=== PATIENT | female | born 1955 | race American Indian/Alaskan Native ===

== ENCOUNTER 2022-02-11 19:55 | Inpatient (IN) | payer MEDICARE ==
--- NOTE | 2022-02-11 20:34 | Cat Scan Report ---
CT HEAD WITHOUT CONTRAST INDICATION / CLINICAL INFORMATION: stroke. TECHNIQUE: All CT scans at this location are performed using CT dose reduction for ALARA by means of automated e xposure control. COMPARISON: None available. FINDINGS: HEMORRHAGE: No evidence of intracranial hemorrhage or extra-axial fluid collection. EXTRA-AXIAL SPACES: Cortical sulci, sylvian fissures and basilar cisterns have an unremarkable appear ance. VENTRICULAR SYSTEM: The third and lateral ventricles are of normal size and configuration. CEREBRAL PARENCHYMA: Subtle periventricular white matter lucencies noted compatible with early microv ascular ischemic change. No additional areas of abnormal brain parenchymal attenuation are identified . There is no indication of recent infarction. MIDLINE SHIFT OR HERNIATION: There is no mass effect. CEREBELLUM / BRAINSTEM: Brainstem and cerebellum have an unremarkable appearance. MIDLINE STRUCTURES:No abnormalities of the pituitary gland or pineal region are identified. INTRACRANIAL VESSELS:Calcified atherosclerotic plaque is observed along the course the cavernous segm ents of both internal carotid arteries. ORBITS: visualized portions of the orbits have an unremarkable appearance. SOFT TISSUES of HEAD: No significant abnormality. CALVARIUM: Evaluation of bone windows reveals no abnormalities. PARANASAL SINUSES / MASTOID AIR CELLS: Visualized portions of the paranasal sinuses are free from inf lammatory mucosal disease. Mastoid air cells are normally pneumatized. ADDITIONAL FINDINGS: Ossification of the falx is observed in the anterior interhemispheric fissure. IMPRESSION: 1. No acute intracranial abnormality. 2. Mild microvascular ischemic change. Signer Name: Arnoldo Beck MD Signed: 02/11/2022 8:29 PM Workstation Name: [id number]
--- NOTE | 2022-02-11 20:42 | Emergency Department Report ---
ED Neuro Deficit HPI - General Stated Complaint: NEURO Time Seen by Provider: 02/11/22 20:00 Source: patient, family, RN/MD, RN notes reviewed, old records reviewed Mode of arrival: Stretcher Limitations: No Limitations - History of Present Illness Initial Comments: 66-year-old obese female with history of hypertension brought in by EMS from [facility] for evaluation of stroke. Patient and her daughter provide HPI. Patient's daughter states that at 5:00 she received a call from her father stating that the patient was cooking food and felt dizzy, and fell, s triking the back of her head against the ground. She did not blackout or lose consciousness. The patient was to follow-up with [place] via the [facility] but she telephoned her daughter to take her to [place]. 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 She states that they got to [place] at approximately 6 PM and by the time they arrived, the patient was noted to have weakness in her left arm and left leg and to have slurred speech and complained that she needed help with a wheelchair. Patient denies any prior history of strokes. She complains of a posterior headache, slurred speech, and weakness in her left arm and left leg. Patient please states "my left leg feels numb and I cannot really move it." Pain currently 6 out of 10 - Related Data Allergies/Adverse Reactions: Allergies Allergy/AdvReac Type Severity Reaction Status Date / Time No Known Allergies Allergy Unverified 02/11/22 19:58 ED Review of Systems ROS: Stated complaint: NEURO Other details as noted in HPI Comment: All other systems reviewed and negative Constitutional: no symptoms reported Eyes: as per HPI ENT: as per HPI Respiratory: no symptoms reported Cardiovascular: denies: chest pain, palpitations, dyspnea on exertion, orthopnea, edema, syncope, paroxysmal nocturnal dyspnea Musculoskeletal: denies: back pain, joint swelling, arthralgia, myalgia Neurological: headache, weakness, numbness, paresthesias, abnormal gait. denies: confusion, vertigo, other Psychiatric: denies: as per HPI, anxiety, depression, auditory hallucinations, v isual hallucinations, homicidal thoughts, suicidal thoughts Hematological/Lymphatic: denies: easy bleeding, easy bruising, swollen glands ED Past Medical Hx - Past Medical History Previous Medical History?: Yes Hx Hypertension: Yes - Family History Family history: no significant - Social History Smoking Status: Never Smoker Substance Use Type: None ED Neuro Physical Exam - General Limitations: No Limitations General appearance: alert Suspected Stroke: Yes - Head Head exam: Present: atraumatic, normocephalic, normal inspection - Eye Eye exam: Present: normal appearance, PERRL, EOMI Pupils: Present: normal accommodation - ENT ENT exam: Present: normal exam, mucous membranes moist - Neck Neck exam: Present: normal inspection, meningismus, full ROM. Absent: lymphadenopathy, thyromegaly, other - Respiratory Respiratory exam: Present: normal lung sounds bilaterally. Absent: respiratory distress, wheezes, rales, rhonchi, stridor, chest wall tenderness, accessory muscle use, decreased breath sounds, prolonged expiratory - Cardiovascular Cardiovascular Exam: Present: regular rate, normal rhythm, normal heart sounds. Absent: bradycardia, tachycardia, irregular rhythm, systolic murmur, diastolic murmur, rubs, gallop, clicks, JVD, S3, S4 - GI/Abdominal GI/Abdominal exam: Present: soft, normal bowel sounds. Absent: distended, tenderness, guarding, rebound, rigid, hyperactive bowel sounds, hypoactive bowel sounds, organomegaly, mass, bruit, pulsatile mass, hernia - Extremities Exam Extremities exam: Present: normal inspection, full ROM, normal capillary refill. Absent: tenderness, pedal edema, joint swelling, calf tenderness - Back Exam Back exam: Present: normal inspection, full ROM. Absent: tenderness, CVA tenderness (R), CVA tenderness (L), muscle spasm, paraspinal tenderness, vertebral tenderness - Neurological Exam Neurological exam: Present: alert, oriented X3, other (dsyarthria) - NIHSS Assessment Interval: Baseline 1a. Level of Consciousness: alert/keenly responsive 1b. LOC Questions: answers both correctly 1c. LOC Commands: performs tasks correctly 2. Best Gaze: normal 3. Visual: no visual loss 4. Facial Palsy: partial paralysis 5b. Motor Arm Right: no drift 5a. Motor Arm Left: some gravity effort 6a. Motor Leg Left: no gravity effort 6b. Motor Leg Right: no drift 7. Limb Ataxia: present 1 limb 8. Sensory: mild/moderate sensory loss 9. Best Language: no aphasia 10. Dysarthria: mild/moderate dysarthria 11. Extinction/Inattention: no abnormality Total Score: 10 Stroke Severity: Moderate Stroke - Psychiatric Psychiatric exam: Present: normal affect - Skin Skin exam: Present: warm, intact, normal color ED Course Vital Signs 02/11/22 21:15 Blood Pressure 181/71 - Reevaluation(s) Reevaluation #1: 08:48pm: Call received from stroke neurologist, Dr. Roque. Per her verbal report patient is a tPA candidate. However patient is undecided and she is advising that I speak to the patient and her daughter again and to administer tPA if they are in agreement, given that the patient is within the window to be given tPA but that this must be given emergently given of the window for close and approximate 10 minutes. 8:50 PM: Call terminated with stroke neurologist. I emergently went to the patient's room and had an extensive conversation with her and her daughter. 8:54 PM. Patient verbalizes agreement to receive tPA. 02/11/22 21:04: [facility] telephoned to ascertain whether or not the patient would require transfer per [facility] policy.. I was transferred to the hub specialist Dr. Marrero. Case was reviewed with her. She states that pt's rec eiving TPA are not candidates for transfer. She advises that the patient be kept here at [facility] for admission and further management. 02/11/22 21:14 Reevaluation #2: 02/11/22 22:00 Patient is reassessed. She is noted to be having 4 out of 5 motor strength in her left lower extremity and 4 out of 5 motor strength left upper extremity, left-sided facial droop has improved significantly. Patient has mild dysarthria and reports overall improvement in her symptoms. We will continue to monitor. - Lab Data Result diagrams: 02/11/22 21:21 02/11/22 21:21 Lab Results 02/11/22 02/11/22 Range/Units 21:21 21:21 WBC 5.3 (4.5-11.0) K/mm3 RBC 4.08 (3.65-5.03) M/mm3 Hgb 11.8 (10.1-14.3) gm/dl Hct 35.4 (30.3-42.9) % MCV 87 (79-97) fl MCH 29 (28-32) pg MCHC 33 (30-34) % RDW 13.2 (13.2-15.2) % Plt Count 166 (140-440) K/mm3 Lymph % (Auto) 18.2 (13.4-35.0) % [place] % (Auto) 5.7 (0.0-7.3) % Eos % (Auto) 1.3 (0.0-4.3) % Baso % (Auto) 0.6 (0.0-1.8) % Lymph # (Auto) 1.0 L (1.2-5.4) K/mm3 [place] # (Auto) 0.3 (0.0-0.8) K/mm3 Eos # (Auto) 0.1 (0.0-0.4) K/mm3 Baso # (Auto) 0.0 (0.0-0.1) K/mm3 Seg Neutrophils % 74.2 H (40.0-70.0) % Seg Neutrophils # 3.9 (1.8-7.7) K/mm3 Sodium 142 (137-145) mmol/L Potassium 4.0 (3.6-5.0) mmol/L Chloride 106.4 (98-107) mmol/L Carbon Dioxide 24 (22-30) mmol/L Anion Gap 16 mmol/L BUN 8 (7-17) mg/dL Creatinine 0.8 (0.6-1.2) mg/dL Estimated GFR > 60 ml/min BUN/Creatinine Ratio 10 % Glucose 109 H (65-100) mg/dL Calcium 8.7 (8.4-10.2) mg/dL Total Bilirubin 0.40 (0.1-1.2) mg/dL AST 17 (5-40) units/L ALT 12 (7-56) units/L Alkaline Phosphatase 90 (35-129) units/L Troponin T < 0.010 (0.00-0.029) ng/mL Total Protein 7.0 (6.3-8.2) g/dL Albumin 3.8 L (3.9-5) g/dL Albumin/Globulin Ratio 1.2 % - EKG Data -: EKG Interpreted by [place] EKG shows normal: sinus rhythm Rate: normal When compared to previous EKG there are: no significant change - Radiology Data Radiology results: report reviewed - Medical Decision Making 66-year-old obese female with hypertension, brought in for acute stroke symptoms with slurred speech, left facial droop, left upper and left lower extremity weakness. Vitals stable. Diagnostic imaging and labs reviewed. Stroke n eurologist evaluated the patient. Per her recommendation patient is within window to receive tPA. tPA administered and the patient demonstrated significant improvement and near resolution of her neurological deficits. Patient has been accepted for admission to the medical intensive care unit by Dr. Jones, admitting hospitalist. - Thrombolytic Inclusion/Exclusion Thrombolytic Inclusion Criteria: Ischemic Stroke Onset< 3h, NIH Stroke Scale Deficit, Negative CT Scan for ICH, Age 18 or Older, Glucose of 50-400mg/dl Critical Care Time: Yes Critical care time in (mins) excluding proc time.: 30 Critical care attestation.: If time is entered above; I have spent that time in minutes in the direct care of this critically ill patient, excluding procedure time. ED Disposition Clinical Impression: Stroke, Dysarthria Disposition: ADMITTED INPATIENT Is pt being admited?: Yes Does the pt Need Aspirin: No Condition: Stable
[2022-02-11] MEDS ORDERED: ALTEPLASE 100 MG INJ KIT IV ONE ×2 (20:53)
[2022-02-11] MEDS ORDERED: SODIUM CHLORIDE 0.9% 50 ML IVPB IV ONE (20:53)
--- NOTE | 2022-02-11 20:54 | Emergency Department Report ---
Blank Doc - Documentation Documentation: [facility] Consult Note # Demographics Consult Type: Acute Stroke Level 1 (0-4.5 hrs) Patient Location: Emergency Room First Name: Fidelina Last Name: Reji Date of : 1955 Age: 66 Gender: Female Facility: [facility] Time of Initial Page ( Time): 02/11/2022, 19:58 Time of Return Call ( Time): 02/11/2022, 20:07 # HPI History: 66 year old female who states she was having vertigo. She suddenly fell on her back. She state she also had numbness on left arm and leg. Last Known Normal: 2 hours # Scores Level of Consciousness 1a: [0] = Alert; keenly responsive LOC Questions 1b: [0] = Answers both questions correctly LOC Commands 1c: [0] = Performs both tasks correctly Best Gaze 2: [0] = Normal Visual 3: [0] = No visual loss Facial Palsy 4: [1] = Minor paralysis Motor Arm Left 5a: [1] = Drift Motor Arm Right 5b: [0] = No drift Motor Leg Left 6a: [2] = Some effort against gravity Motor Leg Right 6b: [0] = No drift Limb Ataxia 7: [0] = Absent Sensory 8: [1] = [id number] sensory loss Best Language 9: [0] = No aphasia Dysarthria 10: [1] = [id number] dysarthria Extinction and Inattention 11: [0] = No abnormality NIHSS Total: 6 # PMH-FH-SH Past Medical History: hyperlipidemia hypertension Social History: non-smoker non-drinker no drugs lives with spouse # Data Head CT: no bleed per radiologist read # Assessment Impression: Stroke: Tpa discussed with patient and she most likely would like to consent but wants to discuss with family. DR. Hodges to obtain final consent before moving forward with administration. # Plan Thrombolytic/Intervention: IV thrombolytic and possible IA candidate Thrombolytic Dosing: IV alteplase 0.9 mg/kg, max dose 90 mg; 10% of dose given over 1 minute IVP, remaining 90% given as infusion over 1 hour Possible IA Candidate: CTA pending Time IV Thrombolytic Recommended (): 02/11/2022, 19:45 Target Blood Pressure: SBP < 180 DBP < 105 Labs: CBC comprehensive metabolic panel hemoglobin A1c lipid panel troponin TSH urine drug screen ua Imaging: (urgency: STAT): CT Head without contrast CT Angiogram Head and CT Angiogram Neck Imaging: (urgency: routine): MRI Brain without contrast Diagnostic Test: echo with bubble study Therapy/Evaluation: NPO until swallow evaluation PT/OT evaluation speech/swallow consultation Thrombolytic Administration Recommendations: I reviewed the risks/benefits/alternatives of IV thrombolytic therapy with the patient. They understand there is potential of life threatening hemorrhage from IV thrombolysis. I stated that I believe benefits outweighs risk. They wish to proceed with IV thrombolytic therapy (DR. Hodges to confirm this one last time as patient would like to discuss with her ). I have collected independent history specific to time last normal or last known well. We have collaborated with the ED provider and at this time, we have the most current timeline with the information that is available. BP goal< 180/105 for 24hrs post Thrombolytic administration Use Labetolol 10-20mg IV prn or Nicardipine gtt to maintain BP parameters No antiplatelets or anticoagulants for next 24 hrs unless indicated for emergent IA procedure or other life threatening situation ICU admission Call back if there is any decline in neurological condition Transfer to facility that is IA capable for consideration of mechanical thrombectomy Other: If patient has any neurological deterioration please call me back immediately telemetry monitoring I have discussed my recommendations with the referring provider Disposition: continue admission
--- NOTE | 2022-02-11 21:00 | Cat Scan Report ---
CTA neck without and with intravenous contrast material CLINICAL HISTORY: stroke TECHNIQUE: Following acquisition of a timing bolus 0.625 mm thick contiguous axial scans were obtained from aort ic arch to the skull base during rapid bolus intravenous contrast infusion. In addition to evaluation of axial source images multiplanar reconstructions were produced and reviewed for this report. 3 samm ne MIP reconstructions were produced and reviewed. Contrast dose report: Omnipaque 350: 100 ml, administered intravenously All CT examinations performed at this facility utilize modulated dose reduction, iterative reconstruc tion or weight-based dosing, as appropriate, to obtain a radiation dose which is as low as can reason ably be achieved. FINDINGS: Thoracic aorta: Contrast opacification of the thoracic aorta and proximal great vessels is suboptimal on this examination limiting evaluation of the structures. Allowing for these limitations, no abnorm alities are identified along the course of the thoracic aorta..The origins of the great vessels have an unremarkable appearance. Brachiocephalic artery, left common carotid artery origin and left subcla vian artery all have an unremarkable appearance. Right carotid artery:No abnormalities are seen along the course of the RCCA, at the right carotid bif urcation or along the cervical portions of the DION. Incidental note is made of positioning of the ri ght greater horn of the hyoid bone between the right internal and external carotid arteries. Left carotid artery: No abnormalities are noted along the course of the left common carotid artery, a t the left carotid bifurcation or along the course of the cervical segments of the LICA. Posterior circulation:The vertebral arteries have an unremarkable appearance. Both vertebral arteries contribute to the basilar artery origin. The basilar artery has an unremarkable appearance. The degree of stenosis, if any, is determined utilizing NASCET like criteria. In this case there is no indication of hemodynamically significant stenosis at the carotid bifurcations or elsewhere. Evaluation of the nonvascular soft tissue structures reveal no abnormality. There is no indication of cervical lymphadenopathy. No abnormalities are seen along the course of the airway. Visualized porti ons of the parotid glands and the submandibular salivary glands have a normal appearance. Thyroid gla nd has a normal appearance. Evaluation of the lung apices reveals no evidence of lung nodule or infil trate. Evaluation of the cervical spine is remarkable for advanced cervical spondylosis at the C5-6 and C6-7 levels were loss of disc height, anterior osteophyte and posterior osteophyte formation are noted. M ild central canal stenosis is demonstrated. Bilateral neuroforaminal narrowing is observed. IMPRESSION: 1. No indication of hemodynamically significant stenosis at the carotid bifurcations or elsewhere. CTA head with intravenous contrast CLINICAL HISTORY: stroke TECHNIQUE: 0.625 mm thick contiguous axial scans were obtained from the skull base to the skull vertex during r apid bolus administration of intravenous contrast material. Multiplanar reconstructions were produced in the coronal and sagittal planes. In addition 3 plane MIP instructions were produced and reviewed for this report. The axial source images and reconstructed images were reviewed for this report. CONTRAST DOSE REPORT: Blank: Contrast dose ml administered intravenously. All CT scans at this location are performed using CT dose reduction for ALARA by means of automated e xposure control. FINDINGS: Internal carotid arteries:[place], cavernous, opthalmic, clinoid and supraclinoid segments of the ICAs have an unremarkable appearance. Middle cerebral arteries:Normal and symmetrical M1 segments of the middle cerebral arteries are demon strated. No abnormalities are seen on evaluation of the insular or opercular branches. Anterior cerebral arteries:Bilaterally symmetrical A1 segments are demonstrated. No abnormalities are seen along the course of the A2 segments or their visualized pericallosal branches. Anterior communi cating artery is identified. Vertebral arteries:Bilaterally symmetrical vertebral arteries are demonstrated. Both vertebral arteri es contribute to the basilar artery origin. Basilar artery:Basilar artery has an unremarkable appearance. Posterior cerebral arteries:Bilaterally symmetrical posterior cerebral arteries are identified. Post erior communicating arteries are not identified. [place]:Not intact. see above. Dural sinuses: Dural venous sinuses are well demonstrated on this exam. There is no evidence of dural sinus thrombosis. IMPRESSION: 1. No indication of hemodynamically significant stenosis or large vessel occlusion. Signer Name: Arnoldo Beck MD Signed: 02/11/2022 8:56 PM Workstation Name: [id number]
[2022-02-11 21:28] LABS: Basophils % (Auto) 0.6 % (0.0-1.8); Eosinophils # (Auto) 0.1 K/mm3 (0.0-0.4); Eosinophils % (Auto) 1.3 % (0.0-4.3); Hematocrit 35.4 % (30.3-42.9); Hemoglobin 11.8 gm/dl (10.1-14.3); Lymphocytes % (Auto) 18.2 % (13.4-35.0); Mean Corpuscular HGB Conc 33 % (30-34); Mean Corpuscular Volume 87 fl (79-97); Monocytes # (Auto) 0.3 K/mm3 (0.0-0.8); Monocytes % (Auto) 5.7 % (0.0-7.3); Platelet Count 166 K/mm3 (140-440); Red Blood Count 4.08 M/mm3 (3.65-5.03); Red Cell Distribution Width 13.2 % (13.2-15.2)
[2022-02-11 21:53] LABS: Alanine Aminotransferase 12 units/L (7-56); Albumin 3.8 g/dL (3.9-5); BUN/Creatinine Ratio 10; Blood Urea Nitrogen 8 mg/dL (7-17); Calcium 8.7 mg/dL (8.4-10.2); Hemolysis Index 13
[2022-02-11] MEDS ORDERED: MORPHINE 2 MG/1 ML INJ IV PRN (22:07)
[2022-02-11] MEDS ORDERED: ONDANSETRON 4 MG/2 ML INJ IV PRN (22:07)
[2022-02-11] MEDS ORDERED: ALBUTEROL 2.5 MG/3 ML NEBU IH PRN (22:07)
[2022-02-11] MEDS ORDERED: MORPHINE 4 MG/1 ML INJ IV PRN (22:07)
[2022-02-11] MEDS ORDERED: SODIUM CHLORIDE 0.9% 1000 ML 1,000 ML IV SCH (22:15)
--- NOTE | 2022-02-11 22:16 | History and Physical Report ---
History of Present Illness Date of examination: 02/11/22 Date of admission: 02/11/22 Chief complaint: Slurred speech Weakness of the left arm and left leg History of present illness: 66-year-old obese female with history of hypertension brought in by EMS from [facility] for evaluation of stroke. Patient's daughter states that at 5:00 she received a call from her father stating that the patient was cooking food and felt dizzy, and fell, striking the back of her head against the ground. She did not blackout or lose consciousness. The patient was to follow- up with [place] via the [facility] but she telephoned her daughter to take her to [place]. Patient's daughter states that she arrived at approximately 5:31 PM to pick remover her mother. She states that they got to [place] at approximately 6 PM and by the time they arrived, the patient was noted to have weakness in her left arm and left leg and to have slurred speech and complained that she needed help with a wheelchair. Patient denies any prior history of strokes. She complains of a posterior headache, slurred speech, and weakness in her left arm and left leg. Patient please states "my left leg feels numb and I cannot really move it." Pain currently 6 out of 10 In the emergency room initial CT scan of the head shows no acute intracranial abnormality. CTA of the neck and head shows no large vessel occlusion. Subsequently patient was seen and evaluated by telemetry neurology and patient is status post tPA with improvement of symptoms Past History Past Medical History: hypertension Past Surgical History: No surgical history Social history: no significant social history Family history: hypertension Medications and Allergies Allergies Allergy/AdvReac Type Severity Reaction Status Date / Time No Known Allergies Allergy Unverified 02/11/22 19:58 Review of Systems All systems: negative Constitutional: weakness, other (Slurred speech, weakness of the left arm and left leg) Exam - Constitutional Vitals: Temp Pulse Resp BP Pulse Ox 181/71 02/11/22 21:15 General appearance: Present: no acute distress, well-nourished - EENT Eyes: Present: PERRL ENT: hearing intact, clear oral mucosa - Neck Neck: Present: supple, normal ROM - Respiratory Respiratory effort: normal Respiratory: bilateral: CTA - Cardiovascular Heart Sounds: Present: S1 & S2. Absent: rub, click - Extremities Extremities: pulses symmetrical, No edema Peripheral Pulses: within normal limits - Abdominal General gastrointestinal: Present: soft, non-tender, non-distended, normal bowel sounds Female genitourinary: Present: normal - Integumentary Integumentary: Present: clear, warm, dry - Musculoskeletal Musculoskeletal: gait normal, strength equal bilaterally - Psychiatric Psychiatric: appropriate mood/affect, intact judgment & insight - Neurologic Neurologic: CNII-XII intact, moves all extremities HEART Score - HEART Score Troponin: Troponin T < 0.010 ng/mL (0.00-0.029) 02/11/22 21:21 Results - Labs CBC & Chem 7: 02/11/22 21:21 02/11/22 21:21 Labs: Laboratory Last Values WBC 5.3 K/mm3 (4.5-11.0) 02/11/22 21: RBC 4.08 M/mm3 (3.65-5.03) 02/11/22 21:21 Hgb 11.8 gm/dl (10.1-14.3) 02/11/22 21: Hct 35.4 % (30.3-42.9) 02/11/22 21:21 MCV 87 fl (79-97) 02/11/22 21: MCH 29 pg (28-32) 02/11/22 21:21 MCHC 33 % (30-34) 02/11/22 21:21 RDW 13.2 % (13.2-15.2) 02/11/22 21:21 Plt Count 166 K/mm3 (140-440) 02/11/22 21:21 Lymph % (Auto) 18.2 % (13.4-35.0) 02/11/22 21: [place] % (Auto) 5.7 % (0.0-7.3) 02/11/22 21:21 Eos % (Auto) 1.3 % (0.0-4.3) 02/11/22 21:21 Baso % (Auto) 0.6 % (0.0-1.8) 02/11/22 21:21 Lymph # (Auto) 1.0 K/mm3 (1.2-5.4) L 02/11/22 21:21 [place] # (Auto) 0.3 K/mm3 (0.0-0.8) 02/11/22 21:21 Eos # (Auto) 0.1 K/mm3 (0.0-0.4) 02/11/22 21:21 Baso # (Auto) 0.0 K/mm3 (0.0-0.1) 02/11/22 21:21 Seg Neutrophils % 74.2 % (40.0-70.0) H 02/11/22 21:21 Seg Neutrophils # 3.9 K/mm3 (1.8-7.7) 02/11/22 21:21 Sodium 142 mmol/L (137-145) 02/11/22 21:21 Potassium 4.0 mmol/L (3.6-5.0) 02/11/22 21:21 Chloride 106.4 mmol/L (98-107) 02/11/22 21:21 Carbon Dioxide 24 mmol/L (22-30) 02/11/22 21:21 Anion Gap 16 mmol/L 02/11/22 21:21 BUN 8 mg/dL (7-17) 02/11/22 21:21 Creatinine 0.8 mg/dL (0.6-1.2) 02/11/22 21:21 Estimated GFR > 60 ml/min 02/11/22 21:21 BUN/Creatinine Ratio 10 % 02/11/22 21:21 Glucose 109 mg/dL (65-100) H 02/11/22 21:21 Calcium 8.7 mg/dL (8.4-10.2) 02/11/22 21:21 Total Bilirubin 0.40 mg/dL (0.1-1.2) 02/11/22 21:21 AST 17 units/L (5-40) 02/11/22 21:21 ALT 12 units/L (7-56) 02/11/22 21:21 Alkaline Phosphatase 90 units/L (35-129) 02/11/22 21:21 Troponin T < 0.010 ng/mL (0.00-0.029) 02/11/22 21:21 Total Protein 7.0 g/dL (6.3-8.2) 02/11/22 21:21 Albumin 3.8 g/dL (3.9-5) L 02/11/22 21:21 Albumin/Globulin Ratio 1.2 % 02/11/22 21:21 - Imaging and Cardiology CT Scan - head: report reviewed Assessment and Plan VTE prophylaxis?: Mechanical Plan of care discussed with patient/family: Yes - Patient Problems (1) Stroke Status: Acute Plan to address problem: Admit the patient to the ICU. Patient is a status post tPA. Lipitor 40 mg p.o. daily. PT OT speech evaluation. Neurology evaluation. MRI of the brain and MRA of the brain and neck with and without contrast. Echocardiogram. We also consult critical care evaluation (2) Hypertension Status: Acute Plan to address problem: Labetalol 10 mg IV every 6 hours as needed. We continue the home medication. We will monitor the blood pressure closely (3) Dysarthria Status: Acute Plan to address problem: Patient is a status post tPA. Lipitor 40 mg p.o. daily. PT OT speech evaluation. Neurology evaluation. MRI of the brain and MRA of the brain and neck with and without contrast. Echocardiogram. (4) DVT prophylaxis Status: Acute Plan to address problem: SCD for DVT prophylaxis. Pepcid 20 mg IV every 12 hours for GI prophylaxis. Patient is a full code
[2022-02-11 23:27] LABS: Amphetamine Screen,Urine Negative; Benzodiazepines Screen,Urine Negative; Cannabinoid Screen,Urine Negative; Cocaine Screen,Urine Negative; Methadone Screen,Urine Negative; Opiate Screen,Urine Negative
[2022-02-12 04:31] LABS: Chol/HDL Ratio 2.78 %
[2022-02-12] MEDS: IPRATROPIUM/ALBUTEROL SULFATE 3 ML AMPUL.NEB IH SCH ×3 (05:11→15:08)
--- NOTE | 2022-02-12 09:05 | Electrocardiograph Report ---
[facility] Test Date: 2022-02-12 Test Time: 00:46:02 Pat Name: MANDY LAKHANI Department: Room: A260 1 Gender: F Showroom Consultant: UDAY : 1955 Requested By: ZACH STEVEN Order Number: [id number] Reading MD: Mina Mares Measurements Intervals Brush Rate: 47 P: 19 SC: 184 QRS: -8 QRSD: 109 T: 9 QT: 514 QTc: 453 Interpretive Statements Sinus bradycardia Low voltage, precordial leads No previous ECG available for comparison Electronically Signed On 02-12-2022 9:05:34 EDT by Mina Mares
--- NOTE | 2022-02-12 09:12 | Consultation ---
History of Present Illness Consult date: 02/12/22 Reason for Consult: cva s/p Chief complaint: left sided weakness History of present illness: 66 yo female with htn who presents with an episode of vertigo and fell backwards and fell on the floor and laid there for 15-20 mins. Laid on the bed and she noticed her speech was slurred and noticed left arm/leg weakness w/ numbness. Patient received IV-tPA and noticed improvement in her symptoms (90% back to normal). Past History Past Medical History: hypertension Past Surgical History: No surgical history Social history: no significant social history Family history: hypertension Medications and Allergies Allergies Allergy/AdvReac Type Severity Reaction Status Date / Time No Known Allergies Allergy Unverified 02/11/22 19:58 Active Meds: Active Medications Acetaminophen (Acetaminophen 325 Mg Tab) 650 mg PO Q4H PRN PRN Reason: Pain MILD(1-3)/Fever >100.5/SY Albuterol (Albuterol 2.5 Mg/3 Ml Nebu) 2.5 mg IH Q3HRT PRN PRN Reason: Shortness Of Breath Albuterol/Ipratropium (Ipratropium/Albuterol Sulfate 3 Ml Ampul.Neb) 1 ampul IH Q6HRT [facility] Last Admin: 02/12/22 05:11 Dose: Not Given Atorvastatin Calcium (Atorvastatin 40 Mg Tab) 40 mg PO QHS [facility] Famotidine (Famotidine 20 Mg/2 Ml Inj) 20 mg IV BID [facility] Sodium Chloride (Nacl 0.9% 1000 Ml) 1,000 mls @ 100 mls/hr IV DIRECT [facility] Last Admin: 02/12/22 02:35 Dose: 100 mls/hr Labetalol HCl (Labetalol 20 Mg/4 Ml Inj) 10 mg IV Q5MIN PRN PRN Reason: to maintain SBP < 180 Morphine Sulfate (Morphine 2 Mg/1 Ml Inj) 2 mg IV Q4H PRN PRN Reason: Pain, Moderate (4-6) Morphine Sulfate (Morphine 4 Mg/1 Ml Inj) 4 mg IV Q4H PRN PRN Reason: Pain , Severe (7-10) Ondansetron HCl (Ondansetron 4 Mg/2 Ml Inj) 4 mg IV Q8H PRN PRN Reason: Nausea And Vomiting Sodium Chloride (Sodium Chloride 0.9% 10 Ml Flush Syringe) 10 ml IV BID [facility] Sodium Chloride (Sodium Chloride 0.9% 10 Ml Flush Syringe) 10 ml IV PRN PRN PRN Reason: LINE FLUSH Review of Systems All systems: negative (as per hpi;) Physical Examination - Vital Signs Vital Signs: Vital Signs Pulse Resp Pulse Ox 55 L 16 96 02/11/22 20:38 02/11/22 20:38 02/11/22 20:38 - Physical Exam Narrative exam: Gen: nad, well-nourished; Head: normocephalic; Eyes: no gaze deviation; no ptosis; ENT: normal vocalization; CVS: warm and well-perfused; Pulm: no respiratory distress; GI: appears non-distended; Ext: no cyanosis appreciated at distal extremities; Skin: no acute rash at distal extremities; Heme: no pathologic ecchymosis appreciated at distal extremities; Neuro: alert, oriented to name, age, month, year, surroundings, slight dysarthri a, no aphasia, CN 2 - PERRL, visual griggs grossly intact, CN 3, 4, 6 - EOMI, CN 5 - facial sensation symmetric to light touch, CN 7 - facial movement with mild droop on the left, CN 8 - hearing grossly intact, CN 9, 10 - uvula midline, CN 11 symmetric shoulder movement, CN 12 - tongue midline; Motor - at least 4+/5 at right exts and at least 4/5 at left exts; Sensory - light touch symmetric, Ce rebellar - fnf /hts intact, Gait - deferred secondary to fall risk; NIHSS (1a.) Level of Consciousness:0 (1b.) LOC Questions:0 (1c.) LOC Commands:0 (2.) Best Gaze:0 (3.) Visual:0 (4.) Facial Palsy:1 (5a.) Motor Arm, Left:0 (5b.) Motor Arm, Right:0 (6a.) Motor Leg, Left:0 (6b.) Motor Leg, Right:0 (7.) Limb Ataxia:0 (8.) Sensory:0 (9.) Best Language:0 (10.) Dysarthria:1 (11.) Extinction and Inattention:0 NIHSS Total Score: 2 Results - Laboratory Findings CBC and BMP: 02/11/22 21:21 02/11/22 21:21 Abnormal Lab Findings: Abnormal Labs 02/11/22 02/11/22 02/11/22 20:00 21:21 21:21 Lymph # (Auto) 1.0 L Seg Neutrophils % 74.2 H Glucose 109 H Albumin 3.8 L HDL Cholesterol 66 H Assessment and Plan 66 yo right-handed female with htn who presents with an episode of vertigo and fell backwards and fell on the floor and laid there for 15-20 mins. Laid on the bed and she noticed her speech was slurred and noticed left arm/leg weakness w/ numbness. Patient received IV-tPA and noticed improvement in her symptoms (90% back to normal). 1. Acute ischemic stroke s/p t-PA - post-tPA protocol, MRI Brain w/o contrast, TTEcho, CUS, confirm LDL//TSH/Covid-19/UDS, baseline CXR, EKG; telemetry, NIHSS q4 hours; SBP goal 160-200 mmHg and DBP 80-100 mmHg for now. Statin therapy for a goal LDL of 70, when patient passes swallow evaluation. PT/OT/ST/Swallow evaluation. Long-term risk-factor modification, including a strict diet/exercise regimen for secondary stroke prophylaxis. Stroke education prior to discharge. 2. Hypertension - goal SBP 140-180 mmHg and DBP 80-105 mmHg (per t-PA protocol). 3. Dysarthria / Dysphagia - st / swallow evaluation/monitoring. 4. Left leg-sided weakness - pt/ot evaluation/monitoring. 5. Unsteady Gait - pt/ot evaluation/monitoring. Stuart Boone MD Neurology [id number]
[2022-02-12] MEDS ORDERED: FAMOTIDINE 20 MG/2 ML INJ IV SCH (10:00)
[2022-02-12] MEDS: FAMOTIDINE 20 MG TAB PO SCH ×2 (11:09→21:03)
[2022-02-12] MEDS: ACETAMINOPHEN 325 MG TAB PO PRN ×2 (11:09→21:03)
[2022-02-12] MEDS ORDERED: hydrALAZINE 20 MG/1 ML INJ IV SCH (11:30)
--- NOTE | 2022-02-12 12:33 | Consultation ---
History of Present Illness - Reason for Consult Consult date: 02/12/22 Stroke, s/p TPA - History of Present Illness 66 y/o who presented with left sided numbness and tingling that progressed to left sided weakness along with left sided facial droop. Given TPA last night as deemed a candidate for this. This am has full range of motion now on left and partial resolution of left sided facial droop. BP better, was elevated on arrival. Remainder is negative. Past History Past Medical History: hypertension Past Surgical History: No surgical history Social history: no significant social history Family history: hypertension Medications and Allergies Allergies Allergy/AdvReac Type Severity Reaction Status Date / Time No Known Allergies Allergy Unverified 02/11/22 19:58 Active Meds: Active Medications Acetaminophen (Acetaminophen 325 Mg Tab) 650 mg PO Q4H PRN PRN Reason: Pain MILD(1-3)/Fever >100.5/SY Last Admin: 02/12/22 11:09 Dose: 650 mg Albuterol (Albuterol 2.5 Mg/3 Ml Nebu) 2.5 mg IH Q3HRT PRN PRN Reason: Shortness Of Breath Albuterol/Ipratropium (Ipratropium/Albuterol Sulfate 3 Ml Ampul.Neb) 1 ampul IH Q6HRT [facility] Last Admin: 02/12/22 05:11 Dose: Not Given Atorvastatin Calcium (Atorvastatin 40 Mg Tab) 40 mg PO QHS [facility] Famotidine (Famotidine 20 Mg Tab) 20 mg PO BID [facility] Last Admin: 02/12/22 11:09 Dose: 20 mg Hydralazine HCl (Hydralazine 20 Mg/1 Ml Inj) 10 mg IV ONCE@1130 [facility] Stop: 02/12/22 14:30 Labetalol HCl (Labetalol 20 Mg/4 Ml Inj) 10 mg IV Q5MIN PRN PRN Reason: to maintain SBP < 180 Morphine Sulfate (Morphine 2 Mg/1 Ml Inj) 2 mg IV Q4H PRN PRN Reason: Pain, Moderate (4-6) Morphine Sulfate (Morphine 4 Mg/1 Ml Inj) 4 mg IV Q4H PRN PRN Reason: Pain , Severe (7-10) Ondansetron HCl (Ondansetron 4 Mg/2 Ml Inj) 4 mg IV Q8H PRN PRN Reason: Nausea And Vomiting Sodium Chloride (Sodium Chloride 0.9% 10 Ml Flush Syringe) 10 ml IV BID [facility] Last Admin: 02/12/22 11:02 Dose: 10 ml Sodium Chloride (Sodium Chloride 0.9% 10 Ml Flush Syringe) 10 ml IV PRN PRN PRN Reason: LINE FLUSH Review of Systems All systems: negative Exam - Constitutional Vitals: Temp Pulse Resp BP Pulse Ox 98.5 F 63 24 163/60 96 02/12/22 12:00 02/12/22 12:10 02/12/22 12:10 02/12/22 12:10 02/12/22 12:10 General appearance: Present: no acute distress, well-nourished, obese - EENT Eyes: Present: PERRL, EOM intact ENT: hearing intact, clear oral mucosa, dentition normal - Neck Neck: Present: supple, normal ROM - Respiratory Respiratory effort: normal Respiratory: bilateral: CTA Results - Labs CBC & Chem 7: 02/11/22 21:21 02/11/22 21:21 Labs: Abnormal lab results 02/11/22 02/11/22 02/11/22 Range/Units 20:00 21:21 21:21 Lymph # (Auto) 1.0 L (1.2-5.4) K/mm3 Seg Neutrophils % 74.2 H (40.0-70.0) % Glucose 109 H (65-100) mg/dL Albumin 3.8 L (3.9-5) g/dL HDL Cholesterol 66 H (40-59) mg/dL - Imaging and Cardiology CT Scan - head: report reviewed Assessment and Plan 66 y/o female with stroke, status post TPA 1. q1 hour neuro checks 2. BP control 3. MRI today 4. Repeat head CT tonight 5. ASA, Plavix tomorrow 6. Continue ICU monitoring until 2100, if needed patient could be transferred to floor after this time.
--- NOTE | 2022-02-12 15:02 | Progress Note ---
Assessment and Plan Assessment and plan: This is a 66-year-old female with HTN and depression admitted with acute CVA Neuro: Acute ischemic CVA s/p tPA, h/o depression -Neurology consulted, appreciate recommendations -S/p tPA 02/11 2100 -CT head showed no acute acute abnormality, mild microvascular ischemic changes -CTA head/neck showed no acute indication, no significant stenosis of bilateral carotid bifurcations or elsewhere -MRI brain pending -Echocardiogram pending -Reorientation as needed -Maintain sleep-wake cycle -aspiration/seizure precautions -Neurochecks per protocol -Lipid panel noted -TSH pending -UDS negative -Continue home prozac Cardiac: h/o HTN -Cardiology consulted, appreciate recommendations -Blood pressure monitoring per protocol -Echocardiogram pending Respiratory: NAD -Supplemental oxygen as needed -Pulmonary hygiene -SPO2 monitoring per protocol GI: Obesity -PPI -ST cleared for regular diet/thin liquids -Cardiac diet -BR: colace -Encouraged lifestyle and dietary modifications : NAD -Monitot intake and output -Renally dose medications -Avoid nephrotoxic medications ID: NAD -Monitor WBC and temperature curve Endo: NAD -Avoid hypoglycemia Heme: NAD -Trend CBC -Transfuse hemoglobin less than 7 -SCDs to BLE while in bed The high probability of a clinically significant, sudden or life threatening d eterioration of the [neuro] system(s) required my full and direct attention, intervention and personal management. The aggregate critical care time was [60] minutes. This time is in addition to time spent performing reported procedures but includes the following: [x] Data Review and interpretation [x] Patient assessment and monitoring of vital signs [x] Documentation [x] Medication orders and management Disposition Plan: icu Total Time Spent with Patient (Minutes): 60 History Interval history: This is a 66-year-old female with HTN and depression who presented to the emergency department on 02/11 from [place] [facility] for evaluation of stroke. Per family her called her daughter at 5 PM stating that the patient was cooking food and felt dizzy and fell striking the back of her head against the ground but did not lose consciousness and she requested her daughter to take her to [place]. At [place] patient was noted to have weakness in her left arm and leg and slurred speech. In the emergency department patient had initial CT scan which showed no acute recurrent abnormality and CT of the neck and head showed no large vessel occlusion and after consultation with teleneurology patient was given tPA around 02/11. Patient was admitted to the hospitalist service with consults to neurology and CCM for acute CVA s/p tPA. Hospital course to date: 02/12: MRI brain pending, 24-hour CT head scheduled for 2099. Echocardiogram pending. Patient started on regular diet per ST recommendations. Patient has slight weakness to left upper extremity and left-sided facial droop. Hospitalist Physical - Constitutional Vitals: Temp Pulse Resp BP Pulse Ox 98.5 F 51 L 17 164/65 95 02/12/22 12:00 02/12/22 14:20 02/12/22 14:20 02/12/22 14:20 02/12/22 14:20 General appearance: Present: no acute distress, well-nourished, obese - EENT Eyes: Present: PERRL, EOM intact ENT: hearing intact, clear oral mucosa, dentition normal - Neck Neck: Present: normal ROM - Respiratory Respiratory effort: normal Respiratory: bilateral: CTA - Cardiovascular Rhythm: regular Heart Sounds: Present: S1 & S2. Absent: systolic murmur, diastolic murmur - Extremities Extremities: no ischemia, pulses intact, pulses symmetrical, No edema, normal temperature, normal color Peripheral Pulses: within normal limits - Abdominal General gastrointestinal: soft, non-tender, normal bowel sounds - Integumentary Integumentary: Present: warm, dry - Psychiatric Psychiatric: cooperative - Neurologic Neurologic: CNII-XII intact, other (left sided facial drop, LUE 4/5 strength) - Allied Health Allied health notes reviewed: nursing, RT, social work HEART Score - HEART Score Troponin: Troponin T < 0.010 ng/mL (0.00-0.029) 02/11/22 21:21 Results - Labs CBC & Chem 7: 02/11/22 21:21 02/11/22 21:21 Labs: Laboratory Last Values WBC 5.3 K/mm3 (4.5-11.0) 02/11/22 21:21 RBC 4.08 M/mm3 (3.65-5.03) 02/11/22 21:21 Hgb 11.8 gm/dl (10.1-14.3) 02/11/22 21:21 Hct 35.4 % (30.3-42.9) 02/11/22 21:21 MCV 87 fl (79-97) 02/11/22 21:21 MCH 29 pg (28-32) 02/11/22 21:21 MCHC 33 % (30-34) 02/11/22 21:21 RDW 13.2 % (13.2-15.2) 02/11/22 21:21 Plt Count 166 K/mm3 (140-440) 02/11/22 21:21 Lymph % (Auto) 18.2 % (13.4-35.0) 02/11/22 21:21 [place] % (Auto) 5.7 % (0.0-7.3) 02/11/22 21:21 Eos % (Auto) 1.3 % (0.0-4.3) 02/11/22 21:21 Baso % (Auto) 0.6 % (0.0-1.8) 02/11/22 21:21 Lymph # (Auto) 1.0 K/mm3 (1.2-5.4) L 02/11/22 21:21 [place] # (Auto) 0.3 K/mm3 (0.0-0.8) 02/11/22 21:21 Eos # (Auto) 0.1 K/mm3 (0.0-0.4) 02/11/22 21:21 Baso # (Auto) 0.0 K/mm3 (0.0-0.1) 02/11/22 21: Seg Neutrophils % 74.2 % (40.0-70.0) H 02/11/22 21:21 Seg Neutrophils # 3.9 K/mm3 (1.8-7.7) 02/11/22 21:21 Sodium 142 mmol/L (137-145) 02/11/22 21:21 Potassium 4.0 mmol/L (3.6-5.0) 02/11/22 21: Chloride 106.4 mmol/L (98-107) 02/11/22 21:21 Carbon Dioxide 24 mmol/L (22-30) 02/11/22 21:21 Anion Gap 16 mmol/L 02/11/22 21:21 BUN 8 mg/dL (7-17) 02/11/22 21:21 Creatinine 0.8 mg/dL (0.6-1.2) 02/11/22 21:21 Estimated GFR > 60 ml/min 02/11/22 21:21 BUN/Creatinine Ratio 10 % 02/11/22 21:21 Glucose 109 mg/dL (65-100) H 02/11/22 21:21 Calcium 8.7 mg/dL (8.4-10.2) 02/11/22 21:21 Total Bilirubin 0.40 mg/dL (0.1-1.2) 02/11/22 21:21 AST 17 units/L (5-40) 02/11/22 21:21 ALT 12 units/L (7-56) 02/11/22 21:21 Alkaline Phosphatase 90 units/L (35-129) 02/11/22 21:21 Troponin T < 0.010 ng/mL (0.00-0.029) 02/11/22 21:21 Total Protein 7.0 g/dL (6.3-8.2) 02/11/22 21:21 Albumin 3.8 g/dL (3.9-5) L 02/11/22 21:21 Albumin/Globulin Ratio 1.2 % 02/11/22 21:21 Triglycerides 85 mg/dL (2-149) 02/11/22 20:00 Cholesterol 184 mg/dL (50-199) 02/11/22 20:00 LDL Cholesterol Direct 103 mg/dL (50-130) 02/11/22 20:00 HDL Cholesterol 66 mg/dL (40-59) H 02/11/22 20:00 Cholesterol/HDL Ratio 2.78 % 02/11/22 20:00 Urine Opiates Screen Negative 02/11/22 Unknown Urine Methadone Screen Negative 02/11/22 Unknown Ur Barbiturates Screen Negative 02/11/22 Unknown Ur Phencyclidine Scrn Negative 02/11/22 Unknown Ur Amphetamines Screen Negative 02/11/22 Unknown U Benzodiazepines Scrn Negative 02/11/22 Unknown Urine Cocaine Screen Negative 02/11/22 Unknown U Marijuana (THC) Screen Negative 02/11/22 Unknown Drugs of Abuse Note Disclamer 02/11/22 Unknown Zee/IV: Voiding Method Toilet Active Medications - Current Medications Current Medications: Generic Name Dose Route Start Last Admin Trade Name Freq PRN Reason Stop Dose Admin Acetaminophen 650 mg 02/11/22 22:07 02/12/22 11:09 Acetaminophen 325 Mg Tab PO 650 mg Q4H PRN Administration Pain MILD(1-3)/Fever >100.5/SY Albuterol 2.5 mg 02/11/22 22:07 Albuterol 2.5 Mg/3 Ml Nebu IH Q3HRT PRN Shortness Of Breath Albuterol/Ipratropium 1 ampul 02/12/22 02:00 02/12/22 09:10 Ipratropium/Albuterol Sulfate 3 Ml Ampul.Neb IH Not Given Q6HRT [facility] Atorvastatin Calcium 40 mg 02/12/22 22:00 Atorvastatin 40 Mg Tab PO QHS [facility] Docusate Sodium 100 mg 02/12/22 22:00 Docusate Sodium 100 Mg Cap PO BID [facility] Famotidine 20 mg 02/12/22 11:00 02/12/22 11:09 Famotidine 20 Mg Tab PO 20 mg BID [facility] Administration Labetalol HCl 10 mg 02/11/22 22:07 Labetalol 20 Mg/4 Ml Inj IV Q5MIN PRN to maintain SBP < 180 Morphine Sulfate 2 mg 02/11/22 22:07 Morphine 2 Mg/1 Ml Inj IV Q4H PRN Pain, Moderate (4-6) Oxycodone/Acetaminophen 1 tab 02/12/22 14:57 Oxycodone /Acetaminophen 5-325mg Tab PO Q6H PRN Pain, Moderate (4-6) Sodium Chloride 10 ml 02/12/22 10:00 02/12/22 11:02 Sodium Chloride 0.9% 10 Ml Flush Syringe IV 10 ml BID [facility] Administration Sodium Chloride 10 ml 02/11/22 22:07 Sodium Chloride 0.9% 10 Ml Flush Syringe IV PRN PRN LINE FLUSH
[2022-02-12] MEDS: DOCUSATE SODIUM 100 MG CAP PO SCH (21:03)
--- NOTE | 2022-02-12 21:31 | Cat Scan Report ---
CT HEAD WITHOUT CONTRAST INDICATION / CLINICAL INFORMATION: 24 hours post tpa, 02/12 @ 2100. TECHNIQUE: All CT scans at this location are performed using CT dose reduction for ALARA by means of automated exposure control. COMPARISON: CTA head and neck and CT head without contrast performed on 02/11/2022. FINDINGS: BRAIN PARENCHYMA: No acute intracranial hemorrhage. No evidence of recent infarct. No mass effect or midline shift. VENTRICULAR SYSTEM/EXTRA-AXIAL SPACES: Ventricles are normal for age. No extra-axial fluid collection . ORBITS: Normal as visualized. SKELETAL SYSTEM/SOFT TISSUES: Normal bones and soft tissues. PARANASAL SINUSES/MASTOID AIR CELLS: No significant abnormality. ADDITIONAL FINDINGS: None. IMPRESSION: 1. No acute intracranial abnormality. Signer Name: Eliu Gibson MD Signed: 02/12/2022 9:27 PM Workstation Name: [id number]
[2022-02-13] MEDS ORDERED: hydrALAZINE 20 MG/1 ML INJ IV PRN (08:14)
[2022-02-13] MEDS: IPRATROPIUM/ALBUTEROL SULFATE 3 ML AMPUL.NEB IH SCH ×3 (08:53→23:59)
[2022-02-13] MEDS: LOSARTAN 50 MG TAB PO SCH (09:02)
[2022-02-13] MEDS: FAMOTIDINE 20 MG TAB PO SCH ×2 (09:02→22:41)
[2022-02-13] MEDS: DOCUSATE SODIUM 100 MG CAP PO SCH ×2 (09:02→22:41)
[2022-02-13] MEDS: ASPIRIN EC 81 MG TAB PO SCH (09:03)
[2022-02-13] MEDS: amLODIPine 10 MG TAB PO SCH ×2 (12:00→13:47)
--- NOTE | 2022-02-13 12:26 | Progress Note ---
Assessment and Plan Assessment and plan: This is a 66-year-old female with HTN and depression admitted with acute CVA Neuro: Acute ischemic CVA s/p tPA, h/o depression -Neurology consulted, appreciate recommendations -S/p tPA 02/11 2100 -CT head showed no acute acute abnormality, mild microvascular ischemic changes -CTA head/neck showed no acute indication, no significant stenosis of bilateral carotid bifurcations or elsewhere -Repeat CT head showed no acute intercranial abnormality. -MRI brain pending -Echocardiogram showed LVEF of 55 to 60%, mild LVH, no pericardial effusion, no PFO -Reorientation as needed -Maintain sleep-wake cycle -aspiration/seizure precautions -Neurochecks per protocol -Lipid panel noted -TSH pending -UDS negative -Continue home prozac Cardiac: h/o HTN -Cardiology consulted, appreciate recommendations -Blood pressure monitoring per protocol -Lisinopril and norvasc -Echocardiogram showed LVEF of 55 to 60%, mild LVH, no pericardial effusion, no PFO Respiratory: NAD -Supplemental oxygen as needed -Pulmonary hygiene -SPO2 monitoring per protocol GI: Obesity -PPI -ST cleared for regular diet/thin liquids -Cardiac diet -BR: colace -Encouraged lifestyle and dietary modifications : NAD -Monitot intake and output -Renally dose medications -Avoid nephrotoxic medications ID: NAD -Monitor WBC and temperature curve Endo: NAD -Avoid hypoglycemia Heme: NAD -Trend CBC -Transfuse hemoglobin less than 7 -SCDs to BLE while in bed The high probability of a clinically significant, sudden or life threatening deterioration of the [neuro] system(s) required my full and direct attention, intervention and personal management. The aggregate critical care time was [60] minutes. This time is in addition to time spent performing reported procedures but includes the following: [x] Data Review and interpretation [x] Patient assessment and monitoring of vital signs [x] Documentation [x] Medication orders and management Disposition Plan: transfer to tele Total Time Spent with Patient (Minutes): 60 History Interval history: This is a 66-year-old female with HTN and depression who presented to the emergency department on 02/11 from [place] urgent care for evaluation of stroke. Per family her called her daughter at 5 PM stating that the patient was cooking food and felt dizzy and fell striking the back of her head against the ground but did not lose consciousness and she requested her daughter to take her to [place]. At [place] patient was noted to have weakness in her left arm and leg and slurred speech. In the emergency department patient had initial CT scan which showed no acute recurrent abnormality and CT of the neck and head showed no large vessel occlusion and after consultation with teleneurology patient was given tPA around 02/11. Patient was admitted to the hospitalist service with consults to neurology and [facility] for acute CVA s/p tPA. Hospital course to date: 02/12: MRI brain pending, 24-hour CT head scheduled for 2099. Echocardiogram pending. Patient started on regular diet per ST recommendations. Patient has slight weakness to left upper extremity and left-sided facial droop. 02/13: Repeat CT head showed no hemorrhage, started on aspirin. Will be transferred to the floor. She had MRI brain today. Started on Cozaar and amlodipine due to hypertension. Hospitalist Physical - Constitutional Vitals: Temp Pulse Resp BP Pulse Ox 97.7 F 51 L 15 143/86 97 02/13/22 07:25 02/13/22 11:54 02/13/22 11:54 02/13/22 11:54 02/13/22 11:54 General appearance: Present: no acute distress, well-nourished, obese - EENT Eyes: Present: PERRL, EOM intact ENT: clear oral mucosa, dentition normal - Neck Neck: Present: normal ROM - Respiratory Respiratory effort: normal Respiratory: bilateral: CTA - Cardiovascular Rhythm: regular Heart Sounds: Present: S1 & S2. Absent: systolic murmur, diastolic murmur - Extremities Extremities: no ischemia, pulses intact, pulses symmetrical, No edema, normal temperature, normal color, Full ROM Peripheral Pulses: within normal limits - Abdominal General gastrointestinal: soft, non-tender, non-distended, normal bowel sounds - Integumentary Integumentary: Present: warm, dry - Psychiatric Psychiatric: cooperative - Neurologic Neurologic: CNII-XII intact, focal deficits (slight left facial droop, 4/5 strength to left UE/LE), moves all extremities - Allied Health Allied health notes reviewed: nursing, PT, ST, OT, social work HEART Score - HEART Score Troponin: Troponin T < 0.010 ng/mL (0.00-0.029) 02/11/22 21:21 Results - Labs CBC & Chem 7: 02/11/22 21:21 02/11/22 21:21 Labs: Laboratory Last Values WBC 5.3 K/mm3 (4.5-11.0) 02/11/22 21:21 RBC 4.08 M/mm3 (3.65-5.03) 02/11/22 21:21 Hgb 11.8 gm/dl (10.1-14.3) 02/11/22 21:21 Hct 35.4 % (30.3-42.9) 02/11/22 21:21 MCV 87 fl (79-97) 02/11/22 21:21 MCH 29 pg (28-32) 02/11/22 21:21 MCHC 33 % (30-34) 02/11/22 21:21 RDW 13.2 % (13.2-15.2) 02/11/22 21:21 Plt Count 166 K/mm3 (140-440) 02/11/22 21:21 Lymph % (Auto) 18.2 % (13.4-35.0) 02/11/22 21:21 [place] % (Auto) 5.7 % (0.0-7.3) 02/11/22 21: Eos % (Auto) 1.3 % (0.0-4.3) 02/11/22 21: Baso % (Auto) 0.6 % (0.0-1.8) 02/11/22 21: Lymph # (Auto) 1.0 K/mm3 (1.2-5.4) L 02/11/22 21:21 [place] # (Auto) 0.3 K/mm3 (0.0-0.8) 02/11/22 21:21 Eos # (Auto) 0.1 K/mm3 (0.0-0.4) 02/11/22 21:21 Baso # (Auto) 0.0 K/mm3 (0.0-0.1) 02/11/22 21: Seg Neutrophils % 74.2 % (40.0-70.0) H 02/11/22 21: Seg Neutrophils # 3.9 K/mm3 (1.8-7.7) 02/11/22 21:21 Sodium 142 mmol/L (137-145) 02/11/22 21:21 Potassium 4.0 mmol/L (3.6-5.0) 02/11/22 21:21 Chloride 106.4 mmol/L (98-107) 02/11/22 21:21 Carbon Dioxide 24 mmol/L (22-30) 02/11/22 21:21 Anion Gap 16 mmol/L 02/11/22 21:21 BUN 8 mg/dL (7-17) 02/11/22 21:21 Creatinine 0.8 mg/dL (0.6-1.2) 02/11/22 21:21 Estimated GFR > 60 ml/min 02/11/22 21:21 BUN/Creatinine Ratio 10 % 02/11/22 21:21 Glucose 109 mg/dL (65-100) H 02/11/22 21:21 Calcium 8.7 mg/dL (8.4-10.2) 02/11/22 21:21 Total Bilirubin 0.40 mg/dL (0.1-1.2) 02/11/22 21:21 AST 17 units/L (5-40) 02/11/22 21:21 ALT 12 units/L (7-56) 02/11/22 21:21 Alkaline Phosphatase 90 units/L (35-129) 02/11/22 21:21 Troponin T < 0.010 ng/mL (0.00-0.029) 02/11/22 21:21 Total Protein 7.0 g/dL (6.3-8.2) 02/11/22 21:21 Albumin 3.8 g/dL (3.9-5) L 02/11/22 21:21 Albumin/Globulin Ratio 1.2 % 02/11/22 21:21 Triglycerides 85 mg/dL (2-149) 02/11/22 20:00 Cholesterol 184 mg/dL (50-199) 02/11/22 20:00 LDL Cholesterol Direct 103 mg/dL (50-130) 02/11/22 20:00 HDL Cholesterol 66 mg/dL (40-59) H 02/11/22 20:00 Cholesterol/HDL Ratio 2.78 % 02/11/22 20:00 TSH 3.670 mlU/mL (0.270-4.200) 02/12/22 15:51 Urine Opiates Screen Negative 02/11/22 Unknown Urine Methadone Screen Negative 02/11/22 Unknown Ur Barbiturates Screen Negative 02/11/22 Unknown Ur Phencyclidine Scrn Negative 02/11/22 Unknown Ur Amphetamines Screen Negative 02/11/22 Unknown U Benzodiazepines Scrn Negative 02/11/22 Unknown Urine Cocaine Screen Negative 02/11/22 Unknown U Marijuana (THC) Screen Negative 02/11/22 Unknown Drugs of Abuse Note Disclamer 02/11/22 Unknown Zee/IV: Voiding Method Toilet Active Medications - Current Medications Current Medications: Generic Name Dose Route Start Last Admin Trade Name Freq PRN Reason Stop Dose Admin Acetaminophen 650 mg 02/11/22 22:07 02/12/22 21:03 Acetaminophen 325 Mg Tab PO 650 mg Q4H PRN Administration Pain MILD(1-3)/Fever >100.5/SY Albuterol 2.5 mg 02/11/22 22:07 Albuterol 2.5 Mg/3 Ml Nebu IH Q3HRT PRN Shortness Of Breath Albuterol/Ipratropium 1 ampul 02/12/22 02:00 02/13/22 08:53 Ipratropium/Albuterol Sulfate 3 Ml Ampul.Neb IH 1 ampul Q6HRT NATASHA Administration Amlodipine Besylate 10 mg 02/13/22 10:00 02/13/22 12:00 Amlodipine 10 Mg Tab PO Not Given QDAY NATASHA Aspirin 81 mg 02/13/22 10:00 02/13/22 09:03 Aspirin Ec 81 Mg Tab PO 81 mg QDAY NATASHA Administration Atorvastatin Calcium 40 mg 02/12/22 22:00 02/12/22 21:03 Atorvastatin 40 Mg Tab PO 40 mg QHS NATASHA Administration Docusate Sodium 100 mg 02/12/22 22:00 02/13/22 09:02 Docusate Sodium 100 Mg Cap PO 100 mg BID NATASHA Administration Famotidine 20 mg 02/12/22 11:00 02/13/22 09:02 Famotidine 20 Mg Tab PO 20 mg BID NATASHA Administration Hydralazine HCl 10 mg 02/13/22 08:14 Hydralazine 20 Mg/1 Ml Inj IV Q4HR PRN sbp>160 Labetalol HCl 10 mg 02/11/22 22:07 Labetalol 20 Mg/4 Ml Inj IV Q5MIN PRN to maintain SBP < 180 Losartan Potassium 100 mg 02/13/22 10:00 02/13/22 09:02 Losartan 50 Mg Tab PO 100 mg QDAY NATASHA Administration Morphine Sulfate 2 mg 02/11/22 22:07 Morphine 2 Mg/1 Ml Inj IV Q4H PRN Pain, Moderate (4-6) Oxycodone/Acetaminophen 1 tab 02/12/22 14:57 Oxycodone /Acetaminophen 5-325mg Tab PO Q6H PRN Pain, Moderate (4-6) Sodium Chloride 10 ml 02/12/22 10:00 02/13/22 09:02 Sodium Chloride 0.9% 10 Ml Flush Syringe IV 10 ml BID NATASHA Administration Sodium Chloride 10 ml 02/11/22 22:07 Sodium Chloride 0.9% 10 Ml Flush Syringe IV PRN PRN LINE FLUSH
--- NOTE | 2022-02-13 13:28 | Progress Note ---
Assessment and Plan 66 y/o female with stroke, status post TPA 02/13/22: stable for transfer to floor. Will sign off once out of unit. 1. q1 hour neuro checks 2. BP control 3. MRI today 4. Repeat head CT tonight 5. ASA, Plavix tomorrow 6. Continue ICU monitoring until 2099, if needed patient could be transferred to floor after this time. Subjective Date of service: 02/13/22 Interval history: No acute events. BP stable. MRI done and repeat head CT stable. Objective - Constitutional Vitals: Vital Signs - 12hr 02/13/22 02/13/22 02/13/22 02:00 02:02 02:04 Temperature Pulse Rate 54 L 56 L 51 L Pulse Rate [ Bilateral] Pulse Rate [ From Monitor] Respiratory 18 15 19 Rate Respiratory Rate [Bilateral ] Blood Pressure 156/75 156/75 156/75 O2 Sat by Pulse 99 98 98 Oximetry 02/13/22 02/13/22 02/13/22 02:06 02:08 02:10 Temperature Pulse Rate 49 L 46 L 48 L Pulse Rate [ Bilateral] Pulse Rate [ From Monitor] Respiratory 19 18 18 Rate Respiratory Rate [Bilateral ] Blood Pressure 161/58 161/58 161/58 O2 Sat by Pulse 98 98 98 Oximetry 02/13/22 02/13/22 02/13/22 02:12 03:00 03:30 Temperature Pulse Rate 46 L 48 L 47 L Pulse Rate [ Bilateral] Pulse Rate [ From Monitor] Respiratory 17 18 17 Rate Respiratory Rate [Bilateral ] Blood Pressure 161/58 161/58 188/73 O2 Sat by Pulse 99 98 98 Oximetry 02/13/22 02/13/22 02/13/22 04:00 04:30 05:00 Temperature 98.1 F Pulse Rate 49 L 49 L 52 L Pulse Rate [ Bilateral] Pulse Rate [ 48 L From Monitor] Respiratory 17 17 18 Rate Respiratory Rate [Bilateral ] Blood Pressure 158/60 154/59 154/59 O2 Sat by Pulse 98 98 98 Oximetry 02/13/22 02/13/22 02/13/22 05:30 06:00 06:30 Temperature Pulse Rate 45 L 48 L 56 L Pulse Rate [ Bilateral] Pulse Rate [ From Monitor] Respiratory 18 18 16 Rate Respiratory Rate [Bilateral ] Blood Pressure 172/64 183/65 176/63 O2 Sat by Pulse 98 99 99 Oximetry 02/13/22 02/13/22 02/13/22 07:00 07:25 07:26 Temperature 97.7 F Pulse Rate 54 L 51 L Pulse Rate [ Bilateral] Pulse Rate [ 51 L From Monitor] Respiratory 16 17 Rate Respiratory Rate [Bilateral ] Blood Pressure 176/64 O2 Sat by Pulse 100 100 Oximetry 02/13/22 02/13/22 02/13/22 07:30 08:00 08:30 Temperature Pulse Rate 46 L 52 L 54 L Pulse Rate [ Bilateral] Pulse Rate [ From Monitor] Respiratory 18 15 19 Rate Respiratory Rate [Bilateral ] Blood Pressure 200/84 190/103 174/74 O2 Sat by Pulse 94 96 96 Oximetry 02/13/22 02/13/22 02/13/22 08:53 09:00 09:02 Temperature Pulse Rate 58 L 58 L Pulse Rate [ 60 Bilateral] Pulse Rate [ From Monitor] Respiratory 9 L Rate Respiratory 15 Rate [Bilateral ] Blood Pressure 188/92 188/92 O2 Sat by Pulse 99 Oximetry 02/13/22 02/13/22 02/13/22 09:30 10:00 10:30 Temperature Pulse Rate 61 60 61 Pulse Rate [ Bilateral] Pulse Rate [ From Monitor] Respiratory 11 L 24 15 Rate Respiratory Rate [Bilateral ] Blood Pressure 181/74 181/81 181/74 O2 Sat by Pulse 99 97 89 Oximetry 02/13/22 02/13/22 02/13/22 11:00 11:54 12:00 Temperature 99.4 F Pulse Rate 62 51 L 61 Pulse Rate [ Bilateral] Pulse Rate [ 51 L From Monitor] Respiratory 15 12 Rate Respiratory Rate [Bilateral ] Blood Pressure 177/81 143/86 143/86 O2 Sat by Pulse 97 96 Oximetry 02/13/22 12:30 Temperature Pulse Rate 60 Pulse Rate [ Bilateral] Pulse Rate [ From Monitor] Respiratory 24 Rate Respiratory Rate [Bilateral ] Blood Pressure 155/93 O2 Sat by Pulse 98 Oximetry - Labs CBC & Chem 7: 02/11/22 21:21 02/11/22 21:21 Medications & Allergies - Medications Allergies/Adverse Reactions: Allergies No Known Allergies Allergy (Unverified 02/11/22 19:58) Home Medications: Home Medications Medication Instructions Recorded Confirmed Last Taken Type AtorvaSTATin [Lipitor] 20 mg PO QHS 02/12/22 02/12/22 Unknown History Diclofenac Sodium 75 mg PO BID 02/12/22 02/12/22 Unknown History Losartan [Cozaar] 100 mg PO QDAY 02/12/22 02/12/22 Unknown History Mirtazapine [Remeron] 15 mg PO QHS PRN 02/12/22 02/12/22 Unknown History Sertraline [Zoloft] 200 mg PO QDAY 02/12/22 02/12/22 Unknown History traZODone [Desyrel] 50 mg PO QHS 02/12/22 02/12/22 Unknown History Active Medications: Generic Name Dose Route Start Last Admin Trade Name Freq PRN Reason Stop Dose Admin Acetaminophen 650 mg 02/11/22 22:07 02/12/22 21:03 Acetaminophen 325 Mg Tab PO 650 mg Q4H PRN Administration Pain MILD(1-3)/Fever >100.5/SY Albuterol 2.5 mg 02/11/22 22:07 Albuterol 2.5 Mg/3 Ml Nebu IH Q3HRT PRN Shortness Of Breath Albuterol/Ipratropium 1 ampul 02/12/22 02:00 02/13/22 08:53 Ipratropium/Albuterol Sulfate 3 Ml Ampul.Neb IH 1 ampul Q6HRT NATASHA Administration Amlodipine Besylate 10 mg 02/13/22 10:00 02/13/22 12:00 Amlodipine 10 Mg Tab PO Not Given QDAY NATASHA Aspirin 81 mg 02/13/22 10:00 02/13/22 09:03 Aspirin Ec 81 Mg Tab PO 81 mg QDAY NATASHA Administration Atorvastatin Calcium 40 mg 02/12/22 22:00 02/12/22 21:03 Atorvastatin 40 Mg Tab PO 40 mg QHS NATASHA Administration Docusate Sodium 100 mg 02/12/22 22:00 02/13/22 09:02 Docusate Sodium 100 Mg Cap PO 100 mg BID NATASHA Administration Famotidine 20 mg 02/12/22 11:00 02/13/22 09:02 Famotidine 20 Mg Tab PO 20 mg BID NATASHA Administration Hydralazine HCl 10 mg 02/13/22 08:14 Hydralazine 20 Mg/1 Ml Inj IV Q4HR PRN sbp>160 Labetalol HCl 10 mg 02/11/22 22:07 Labetalol 20 Mg/4 Ml Inj IV Q5MIN PRN to maintain SBP < 180 Losartan Potassium 100 mg 02/13/22 10:00 02/13/22 09:02 Losartan 50 Mg Tab PO 100 mg QDAY NATASHA Administration Morphine Sulfate 2 mg 02/11/22 22:07 Morphine 2 Mg/1 Ml Inj IV Q4H PRN Pain, Moderate (4-6) Oxycodone/Acetaminophen 1 tab 02/12/22 14:57 Oxycodone /Acetaminophen 5-325mg Tab PO Q6H PRN Pain, Moderate (4-6) Sodium Chloride 10 ml 02/12/22 10:00 02/13/22 09:02 Sodium Chloride 0.9% 10 Ml Flush Syringe IV 10 ml BID NATASHA Administration Sodium Chloride 10 ml 02/11/22 22:07 Sodium Chloride 0.9% 10 Ml Flush Syringe IV PRN PRN LINE FLUSH HEART Score - HEART Score Troponin: Troponin T < 0.010 ng/mL (0.00-0.029) 02/11/22 21:21
--- NOTE | 2022-02-13 15:28 | Magnetic Resonance Report ---
MRI BRAIN WITHOUT CONTRAST INDICATION / CLINICAL INFORMATION: stroke, LT ARM WEAKNESS. TECHNIQUE: Multiplanar, multisequence MR images of the brain were obtained. COMPARISON: None available. FINDINGS: BRAIN / INTRACRANIAL CONTENTS: Evaluation of the brainstem is remarkable for a small focus of restricted diffusion within the martínez ( axial image series: MR #[id number], image 80/62). There is an associated focus of decreased signal intensity o n ADC map imaging. This likely represents a recent small deep pontine infarction. No additional abnor malities are seen on evaluation of the brainstem. Cerebellum has an unremarkable appearance. Ventricles and cortical sulci are normal in size and configuration. There is no mass effect. No evide nce of intracranial hemorrhage or extra-axial fluid collection is seen. Periventricular, deep white m atter and subcortical white matter hyperintensities are observed in both cerebral hemispheres compati ble with microvascular ischemic change. No additional areas of abnormal brain parenchymal signal inte nsity are identified. There is no indication of remote cortical infarction. Diffusion weighted scans are otherwise negative. There is no indication of acute ischemic injury in the supratentorial compart ment.. MIDLINE STRUCTURES:No abnormalities are seen to involve the pituitary gland. Pineal region has an unr emarkable appearance. CRANIOCERVICAL JUNCTION: No abnormalities are identified at the craniocervical junction. VASCULAR FLOW-VOIDS: Normal flow-voids are present within the major intracranial vessels. ORBITS: The orbits have an unremarkable appearance. SINUSES / MASTOIDS: There is no indication of inflammatory disease in the paranasal sinuses or mastoi d air cells. IMPRESSION: 1. Small focus of restricted diffusion in the martínez may represent the sequelae of recent small deep po ntine infarction. 2. No additional abnormality. Signer Name: Arnoldo Beck MD Signed: 02/13/2022 3:23 PM Workstation Name: [id number]
[2022-02-14 07:17] VITALS: BP 145/48
--- NOTE | 2022-02-14 07:22 | Discharge Summary ---
Providers - Providers Date of Admission: 02/11/22 22:07 Date of discharge: 02/14/22 Attending physician: ELIDA MCWILLIAMS MD 02/11/22 Consult to Physician [CONS] Routine Comment: Consulting Provider: ALEXYS BUSH Physician Instructions: Reason For Exam: cva 02/11/22 22:07 Consult to Physician [CONS] Routine Comment: Consulting Provider: CHARMAINE OLEA Physician Instructions: Reason For Exam: cva Occupational Therapy Evaluate and Treat [CONS] Routine Comment: Reason For Exam: Neuro deficits Physical Therapy Evaluation and Treat [CONS] Routine Comment: Reason For Exam: Neuro deficits 02/12/22 09:45 Speech Therapy Evaluation and Treat [CONS] Urgent Reason For Exam: S/p TPA Hospitalization Reason for admission: weakness,slurred speech Condition: Stable Hospital course: History Interval history: This is a 66-year-old female with HTN and depression who presented to the [facility] department on 02/11 from [place] urgent care for evaluation of stroke. Per family her called her daughter at 5 PM stating that the patient was cooking food and felt dizzy and fell striking the back of her head against the ground but did not lose consciousness and she requested her daughter to take her to [place]. At [place] patient was noted to have weakness in her left arm and leg and slurred speech. In the emergency department patient had initial CT scan which showed no acute recurrent abnormality and CT of the neck and head showed no large vessel occlusion and after consultation with teleneurology patient was given tPA around 02/11. Patient was admitted to the hospitalist service with consults to neurology and [facility] for acute CVA s/p tPA. Hospital course to date: 02/12: MRI brain pending, 24-hour CT head scheduled for 2099. Echocardiogram pending. Patient started on regular diet per ST recommendations. Patient has slight weakness to left upper extremity and left-sided facial droop. 02/13: Repeat CT head showed no hemorrhage, started on aspirin. Will be transferred to the floor. She had MRI brain today. Started on Cozaar and amlo dipine due to hypertension. 02/14: Asymptomatic on discharge. Small pontine infarct noted on MRI brain. Initiated on asa/plavix. PT/OT recommend home, no needs. Discharge today home. rx for asa,plavix, atorvastatin, amlodipine, cozaar. instructions to follow up with OP primary care physician in 3-5 days. Assessment and plan: This is a 66-year-old female with HTN and depression admitted with acute CVA Neuro: Acute ischemic CVA s/p tPA, h/o depression -Neurology consulted, appreciate recommendations -S/p tPA 02/11 2100 -CT head showed no acute acute abnormality, mild microvascular ischemic changes -CTA head/neck showed no acute indication, no significant stenosis of bilateral carotid bifurcations or elsewhere -Repeat CT head showed no acute intercranial abnormality. -MRI brain pending -Echocardiogram showed LVEF of 55 to 60%, mild LVH, no pericardial effusion, no PFO -Reorientation as needed -Maintain sleep-wake cycle -aspiration/seizure precautions -Neurochecks per protocol -Lipid panel noted -TSH pending -UDS negative -Continue home prozac Cardiac: h/o HTN, hypertensive urgency -Cardiology consulted, appreciate recommendations -Blood pressure monitoring per protocol -cozaar and norvasc -Echocardiogram showed LVEF of 55 to 60%, mild LVH, no pericardial effusion, no PFO Respiratory: NAD -Supplemental oxygen as needed -Pulmonary hygiene -SPO2 monitoring per protocol GI: Obesity -PPI -ST cleared for regular diet/thin liquids -Cardiac diet -BR: colace -Encouraged lifestyle and dietary modifications : NAD -Monitot intake and output -Renally dose medications -Avoid nephrotoxic medications ID: NAD -Monitor WBC and temperature curve Endo: NAD -Avoid hypoglycemia Heme: NAD -Trend CBC -Transfuse hemoglobin less than 7 -SCDs to BLE while in bed Disposition: 01 HOME / SELF CARE / HOMELESS Final Discharge Diagnosis (Prints w/discharge instructions): acute ischemic cerebrovascular accident, hypertensive urgency Time spent for discharge: 35 Core Measure Documentation - Palliative Care Palliative Care/ Comfort Measures: Not Applicable - Core Measures Any of the following diagnoses?: stroke - Stroke Discharge Requirements Statin for LDL = or >70 mg/dl on DC: Yes Anticoag for atrial fib/atrial flutter: Not Applicable Antithrombotic for ischemic stroke: Yes Exam - Physical Exam Narrative exam: General appearance: Present: no acute distress, well-nourished, obese - EENT Eyes: Present: PERRL, EOM intact ENT: clear oral mucosa, dentition normal - Neck Neck: Present: normal ROM - Respiratory Respiratory effort: normal Respiratory: bilateral: CTA - Cardiovascular Rhythm: regular Heart Sounds: Present: S1 & S2. Absent: systolic murmur, diastolic murmur - Extremities Extremities: no ischemia, pulses intact, pulses symmetrical, No edema, normal temperature, normal color, Full ROM Peripheral Pulses: within normal limits - Abdominal General gastrointestinal: soft, non-tender, non-distended, normal bowel sounds - Integumentary Integumentary: Present: warm, dry - Psychiatric Psychiatric: cooperative - Neurologic Neurologic: CNII-XII intact, focal deficits (slight left facial droop, 4/5 strength to left UE/LE)...improved, moves all extremities - Allied Health Allied health notes reviewed: nursing, PT, ST, OT, social work - Constitutional Vitals: Temp Pulse Resp BP Pulse Ox 98.3 F 54 L 18 145/48 96 02/14/22 07:15 02/14/22 07:15 02/14/22 07:15 02/14/22 07:15 02/14/22 07:15 Plan Follow up with: KARISHMA SCHWARZ [Other] - 7 Days
[2022-02-14] MEDS: DOCUSATE SODIUM 100 MG CAP PO SCH (09:12)
[2022-02-14] MEDS: ASPIRIN EC 81 MG TAB PO SCH (09:12)
[2022-02-14] MEDS: oxyCODONE /ACETAMINOPHEN 5-325MG TAB PO PRN ×2 (09:12→15:09)
[2022-02-14] MEDS: LOSARTAN 50 MG TAB PO SCH (09:13)
[2022-02-14] MEDS: FAMOTIDINE 20 MG TAB PO SCH (09:13)
[2022-02-14] MEDS: amLODIPine 10 MG TAB PO SCH (09:13)
[2022-02-14] MEDS ORDERED: CLOPIDOGREL 75 MG TAB PO SCH (10:00)
== END 2022-02-14 15:39 | disposition home or self-care (01) | DRG 62 ==
LOC: ED 19:55 → CC1 22:07 → 4A 02-13 17:12
PROVIDERS: ADMIT Hospitalist; ATTEND Internal Medicine
DX: I63.9 Cerebral infarction, unspecified (principal); Z68.41 Body mass index [BMI] 40.0-44.9, adult; I10 Essential (primary) hypertension; E66.9 Obesity, unspecified; I16.0 Hypertensive urgency; R47.1 Dysarthria and anarthria; W18.39XA Other fall on same level, initial encounter; Y93.89 Activity, other specified; Y92.89 Other specified places as the place of occurrence of the external cause; Y99.8 Other external cause status; E78.5 Hyperlipidemia, unspecified; G83.14 Monoplegia of lower limb affecting left nondominant side; R13.10 Dysphagia, unspecified; R26.81 Unsteadiness on feet; F32.9 Major depressive disorder, single episode, unspecified; Z82.49 Family history of ischemic heart disease and other diseases of the circulatory system
CPT/HCPCS: 36415; 70450; 70496; 70498; 70551; 80053; 80061; 80307; 83036; 84443; 84484; 85025; 93005; 93306; 94640; 94760; G0378; C8929; J0360; J2997; J7030; Q9967